=== PATIENT | female | born 1955 | race American Indian/Alaskan Native ===

== ENCOUNTER 2019-08-04 11:18 | Outpatient (CLI) | payer BC ==
--- NOTE | 2019-08-04 14:03 | Mammography Report ---
RIGHT DIGITAL DIAGNOSTIC MAMMOGRAM WITH CAD -- 08/04/2019 RIGHT LIMITED BREAST ULTRASOUND INDICATION: Patient presents as a callback from screening mammogram for further evaluation of asymmet jennifer densities in the right breast. TECHNIQUE: Digital right mammographic imaging was performed. Spot compression views were obtained. L imited ultrasound was performed. This examination was interpreted with the benefit of Computer-Aided Detection (CAD) analysis. COMPARISON: Prior mammogram 06/30/2019 FINDINGS: Breast Density: There are scattered areas of fibroglandular density. MAMMOGRAPHIC FINDINGS: The previously described asymmetric density in the central right breast on the CC view effaces on spot compression, compatible with overlapping fibroglandular tissue. The previous ly described asymmetric density in the central right breast on MLO view persists but is slightly less conspicuous on additional views. Targeted ultrasound performed for further evaluation. ULTRASOUND FINDINGS: Targeted ultrasound evaluation was performed of the area of interest. Targeted ultrasound of the central and superior right breast reveals an oval circumscribed hypoechoic mass in the right breast 9:00 position located 6 cm from the nipple measuring up to 4 x 2 x 5 mm. The mass i s parallel, and no internal vascularity is demonstrated. Additionally, there is a probable intramamma ry lymph node in the 12:00 position located 5 cm from the nipple measuring up to 5 x 3 x 4 mm. The 9: 00 finding may account for the asymmetric density seen mammographically. IMPRESSION: 1. An oval circumscribed hypoechoic mass in the 9:00 right breast likely corresponds with an asymmetr ic density seen mammographically. Additionally, there is a probable intramammary lymph node in the 12 :00 right breast. These are considered probably benign. Recommend right breast diagnostic mammogram a nd ultrasound in 6 months to ensure stability. Follow up recommendation: Short term follow up in 6 months. BI-RADS Category 3: Probably Benign. Followup in 6 months. A "normal" or negative report should not discourage follow up or biopsy of a clinically significant f inding. A written summary of these findings will be mailed to the patient. The patient will be entered into a mammography reporting system which will generate a reminder letter for the patient's next appointmen t at the appropriate interval. According to the [employer], yearly mammograms are recommended starting at age 40 and continuing as long as a woman is in good health. Breast MRI is recommended for women with an tres roximately 20-25% or greater lifetime risk of breast cancer, including women with a strong family his tory of breast or ovarian cancer and women who have been treated for Hodgkin's disease. Signer Name: Jacqueline Brink MD Signed: 08/04/2019 1:58 PM Workstation Name: [id number]
== END 2019-08-04 11:19 | disposition home or self-care (01) ==
LOC: SPVWC 11:18
PROVIDERS: ATTEND Obstetrics & Gynecology
DX: N63.41 Unspecified lump in right breast, subareolar (principal); N64.89 Other specified disorders of breast

== ENCOUNTER 2020-01-19 09:35 | Outpatient (CLI) | payer BC ==
--- NOTE | 2020-01-19 11:51 | Mammography Report ---
RIGHT DIGITAL DIAGNOSTIC MAMMOGRAM WITH CAD WITH TOMOSYNTHESIS -- 01/19/2020 RIGHT LIMITED BREAST ULTRASOUND INDICATION: Short term follow-up probably benign mammographic and sonographic findings. ABN MAMMO TECHNIQUE: Digital right mammographic imaging was performed. Limited ultrasound was performed. This examination was interpreted with the benefit of Computer-Aided Detection (CAD) analysis. COMPARISON: Right breast mammogram and ultrasound 08/04/19. FINDINGS: Breast Density: There are scattered areas of fibroglandular density. MAMMOGRAPHIC FINDINGS: There is no evidence of dominant mass, suspicious calcifications or architectu ral distortion in the right breast. No significant nodularity is seen. ULTRASOUND FINDINGS: Targeted ultrasound evaluation was performed of the area of interest. There is a 3.1 mm ovoid simple cyst at the 12:00 position 5 cm from the nipple. There is a 4.1 mm cluster of microcysts at the 12:00 position 5 cm from the nipple. This abnormality measured 5.1 mm previously. T he previously described nodule at the 9:00 position is no longer identified. IMPRESSION: No mammographic or sonographic evidence of malignancy. Resumption of routine bilateral ye howie screening mammography is recommended in 6 months. Follow up recommendation: Routine yearly BI-RADS Category 2: Benign. A "normal" or negative report should not discourage follow up or biopsy of a clinically significant f inding. A written summary of these findings will be mailed to the patient. The patient will be entered into a mammography reporting system which will generate a reminder letter for the patient's next appointmen t at the appropriate interval. According to the [employer], yearly mammograms are recommended starting at age 40 and continuing as long as a woman is in good health. Breast MRI is recommended for women with an tres roximately 20-25% or greater lifetime risk of breast cancer, including women with a strong family his tory of breast or ovarian cancer and women who have been treated for Hodgkin's disease. Signer Name: Arik Figueroa MD Signed: 01/19/2020 11:46 AM Workstation Name: [id number]
== END 2020-01-19 09:36 | disposition home or self-care (01) ==
LOC: SPVWC 09:35
PROVIDERS: ATTEND Surgery
DX: N60.01 Solitary cyst of right breast (principal)